=== PATIENT | female | born 1990 | race Caucasian/White ===

== ENCOUNTER 2016-07-21 08:14 | Outpatient (CLI) | payer BC ==
[~2016-07-21] VITALS: Ht 175.4 cm; Wt 71.8 kg
[~2016-07-21 08:14] MED LIST: DOXYCYCLINE 10100 MG PO
[2016-07-21] MEDS ORDERED: NAPROSYN500 MG PO (08:35)
[2016-07-21] MEDS ORDERED: METHOTREXA2.5 MG/TAB PO (08:35)
[2016-07-21] MEDS ORDERED: FOLIC ACID 11 MG/TA1 PO (08:36)
[2016-07-21] MEDS ORDERED: ULTRAM 50MG TAB50 MG PO (08:37)
[2016-07-21 08:45] VITALS: BP 103/60; PULSE 80; TEMP 98.2
[2016-07-21 10:16] VITALS: BP 107/65; PULSE 81; TEMP 9707
== END 2016-07-21 10:31 | disposition home or self-care (01) ==
LOC: EUO 08:14
DX: R55 Syncope and collapse (principal); F17.210 Nicotine dependence, cigarettes, uncomplicated; Z82.49 Family history of ischemic heart disease and other diseases of the circulatory system